=== PATIENT | female | born 1990 | race African-American/Black ===

== ENCOUNTER 2018-03-22 01:21 | Emergency (ER) | payer MEDICAID, OTHER ==
[~2018-03-22] VITALS: Ht 154.9 cm; Wt 69.0 kg
[2018-03-22] MEDS ORDERED: KETOROLAC 15MG/ML VIAL IV ONE (06:30)
[2018-03-22] MEDS ORDERED: ONDANSETRON HCL 4MG/2ML VIAL IV ONE (06:30)
[2018-03-22 06:49] LABS: BASOPHILS % 0.4 % (0.0-2.0); EOSINOPHILS % 1.3 % (0.0-5.0); HEMATOCRIT. 36.5 % (36.0-48.0); HEMOGLOBIN. 11.9 g/dL (12.0-16.0); LYMPHOCYTES % 14.9 % (20.0-50.0); MEAN CORPUSCULAR HEMOGLOBIN 28.4 pg (28.0-32.0); MEAN PLATELET VOLUME 9.3 fl (7.4-10.4); MONOCYTES % 5.5 % (2.0-8.0); NEUTROPHILS % 77.9 % (40.0-76.0); PLATELET 275 x1000/uL (130-400); RED BLOOD CELL COUNT 4.19 mill/uL (4.2-5.4); RED CELL DISTRIBUTION WIDTH 13.5 % (11.6-14.6)
[2018-03-22 06:55] LABS: CHLORIDE 111 mEq/L (98-107)
[2018-03-22 07:25] LABS: CLARITY URINE CLOUDY (CLEAR); COLOR URINE YELLOW (YELLOW); KETONES URINE NEGATIVE (NEGATIVE); LEUKOCYTE ESTERASE URINE 3+ (NEGATIVE); NITRITE URINE POSITIVE (NEGATIVE); OCCULT BLOOD URINE 3+ (NEGATIVE); PH URINE 5.5 (4.5-8.0); PROTEIN URINE 2+ (NEGATIVE); SPECIFIC GRAVITY URINE 1.016 (1.005-1.030); UROBILINOGEN URINE 0.2 E.U./dL (0.2-1.0)
[2018-03-22 07:33] LABS: UCG SCREEN NEGATIVE
[2018-03-22] MEDS ORDERED: CEFTRIAXONE 1 G PREMIX 50 ML IV ONE (08:15)
[2018-03-22 09:14] VITALS: BP 115/62
== END 2018-03-22 09:48 | disposition home or self-care (01) ==
LOC: ER 03:23
DX: N30.01 Acute cystitis with hematuria (principal); F17.200 Nicotine dependence, unspecified, uncomplicated
CPT/HCPCS: 36415; 80053; 81003; 81025; 85025; 87077; 87086; 87186; 96365; 96375; 99284; J0696; J1885; J2405; Z7610

== ENCOUNTER 2019-08-27 20:22 | Emergency (ER) | payer MEDICAID ==
[~2019-08-27] VITALS: Ht 154.9 cm; Wt 70.0 kg
[2019-08-27] MEDS ORDERED: FAMOTIDINE 20MG TABLET PO ONE (23:15)
[2019-08-27 23:30] VITALS: BP 127/78
== END 2019-08-27 23:37 | disposition home or self-care (01) ==
LOC: ER 20:22
DX: R22.0 Localized swelling, mass and lump, head (principal); T39.015A Adverse effect of aspirin, initial encounter; Y92.018 Other place in single-family (private) house as the place of occurrence of the external cause
CPT/HCPCS: 81025; 99283